=== PATIENT | male | born 1960 | race Caucasian/White ===

== ENCOUNTER 2016-10-03 10:01 | Observation (INO) | payer OTHER ==
--- NOTE | 2016-10-03 10:17 | CPEKG ---
Heart Rate: 67 RR Interval: 896 P-R Interval: 192 QRSD Interval: 112 QT Interval: 400 QTC Interval: 423 P Thorp: 58 QRS Thorp: -59 T Wave Thorp: 97 EKG Severity - ABNORMAL ECG - EKG Impression: SINUS RHYTHM EKG Impression: INCOMPLETE RBBB AND LAFB Electronically Signed By: Amalia Reyes 03-Oct-2016 15:22:39
[2016-10-03] MEDS ORDERED: ASPIRIN 81 MG CHEWABLE TAB PO ONE (10:35)
[2016-10-03] MEDS ORDERED: NS 500 ML IV ONE (10:35)
--- NOTE | 2016-10-03 10:35 | EDPHY ---
H & P Time Seen by Provider: 10/03/16 10:12 HPI/ROS: CHIEF COMPLAINT: Syncope HISTORY OF PRESENT ILLNESS: Patient is a 56-year-old male with a history of dilated left heart who presents emergency department after having syncopal episode. The patient was in the shower with his . He was having intercourse. He had not yet had orgasm. He felt lightheaded and dizzy. He leaned his head against the wall. He began to gag numerous times. He then sat down on the floor. His states he lost consciousness. She stated he laid on the shower floor for 2-3 minutes with his eyes rolled back up. He was not breathing. He then coughed and started to gag. His breathing return. He is slowly gained consciousness. The patient states he had mild chest tightness on the way to the emergency department but this is resolved. No leg pain or swelling. No need recent illness, fever or chills. Patient's states he slowly lowered himself to the ground. He fainted once he was lying on the ground. She states he did not sustain trauma. The patient has no complaints of pain or trauma. Patient's states that he has had 3 episodes of fainting since she has known him. They are all similar. He has had a significant workup by Dr. Robertson from Cardiology. He was told he had left ventricular hypertrophy. REVIEW OF SYSTEMS: My complete review of systems is negative except as mentioned in the HPI. Past Medical/Surgical History: Includes left ventricular hypertrophy Past surgical history: Noncontributory Social history: The patient is . He does not smoke. Smoking Status: Never smoked Physical Exam: Vitals noted GENERAL: Well-appearing, in no acute distress, alert. HEENT: Eyes normal to inspection, normal pharynx, no signs of dehydration. NECK: No thyromegaly, no lymphadenopathy, supple. RESPIRATORY: Clear to auscultation bilaterally, no rales, rhonchi or wheezing. CVS: Regular rate and rhythm, no rubs, murmurs, or gallops. ABDOMEN: Soft, nontender, nondistended, no organomegaly. BACK: Normal to inspection, no CVA tenderness. SKIN: Normal color, no rash, warm, dry. No pallor. EXTREMITIES: No pedal edema, no calf tenderness, no Homans sign or cords, no joint swelling. NEURO/PSYCH: Higher functions: Alert and Oriented x3. Normal speech and cognition. Normal mood and affect. Cranial nerves: Normal as tested. Cerebellar: Normal as tested. Good finger to nose, good [id number], normal gait. Peripheral exam: Normal motor exam. Normal sensation. Normal reflexes. Constitutional: Initial Vital Signs Temperature (C) 36.8 C 10/03/16 10:04 Heart Rate 68 10/03/16 10:04 Respiratory Rate 20 10/03/16 10:04 Blood Pressure 132/73 H 10/03/16 10:04 O2 Sat (%) 96 10/03/16 10:04 O2 Delivery Mode Room Air Allergies/Adverse Reactions: No Known Allergies Allergy (Unverified 10/03/16 10:03) Home Medications: Medication Instructions Recorded Ascorbic Acid [Vitamin C 500 mg 500 mg PO DAILY 10/03/16 (*)] Aspirin [Aspirin 81mg (*)] 81 mg PO DAILY 10/03/16 Cholecalciferol Vit D3 [Vitamin D3 2,000 units PO DAILY 10/03/16 2000 units tab (OTC)] Herbals/Supplements -Info Only 1 ea PO DAILY 10/03/16 Multivitamins [Multivitamin (*)] 1 each PO DAILY 10/03/16 Medical Decision Making - Diagnostics EKG Interpretation: Sinus rhythm. Normal axis. Normal intervals. The patient has flipped T-waves V3 through V6. I compared this with an old EKG that the patient's brought with her. This is similar. Imaging Results: Imaging Impressions Chest X-Ray 10/03/16 10:35 Impression: Normal. Chest x-ray is normal ED Course/Re-evaluation: In the emergency department I discussed possible etiologies with the patient. I answered all his questions. An IV was placed. Laboratory studies, EKG, echo and chest x-ray were ordered. Patient was given aspirin 324 mg orally. I rechecked the patient while here. He had no new complaints. Patient's laboratory studies were unremarkable. Troponin was negative. Echo: Please refer the dictated report by Dr. Powers. Patient has incidental finding of a density which will need close follow-up. I discussed case with Dr. Powers from Cardiology. He will consult on the patient. I discussed the case with the hospitalist service. Dr. Sommers will admit. I discussed the plan with the patient. I answered all his questions. On repeat check he was without complaint. He had no lightheadedness or dizziness. No chest pain. Prior to going to the floor the patient was doing well. No new complaints. Differential Diagnosis: My differential includes but is not limited to ACS, acute PR, dysrhythmia, vasovagal episode, CVA, dissection, aneurysm, electrolyte abnormality, sugar abnormality - Data Points Laboratory Results: Laboratory Results 10/03/16 10:18 10/03/16 10:18 10/03/16 10/03/16 10/03/16 10:18 10:18 10:18 WBC 6.89 10^3/uL 10^3/uL (3.80-9.50) RBC 4.99 10^6/uL 10^6/uL (4.40-6.38) Hgb 15.3 g/dL g/dL (13.7-17.5) Hct 45.7 % % (40.0-51.0) MCV 91.6 fL fL (81.5-99.8) MCH 30.7 pg pg (27.9-34.1) MCHC 33.5 g/dL g/dL (32.4-36.7) RDW 12.1 % % (11.5-15.2) Plt Count 225 10^3/uL 10^3/uL (150-400) MPV 9.2 fL fL (8.7-11.7) Neut % (Auto) 82.0 % H % (39.3-74.2) Lymph % (Auto) 11.9 % L % (15.0-45.0) Davidson % (Auto) 4.4 % L % (4.5-13.0) Eos % (Auto) 1.0 % % (0.6-7.6) Baso % (Auto) 0.3 % % (0.3-1.7) Nucleat RBC Rel Count 0.0 % % (0.0-0.2) Absolute Neuts (auto) 5.65 10^3/uL 10^3/uL (1.70-6.50) Absolute Lymphs (auto) 0.82 10^3/uL L 10^3/uL (1.00-3.00) Absolute Monos (auto) 0.30 10^3/uL 10^3/uL (0.30-0.80) Absolute Eos (auto) 0.07 10^3/uL 10^3/uL (0.03-0.40) Absolute Basos (auto) 0.02 10^3/uL 10^3/uL (0.02-0.10) Absolute Nucleated RBC 0.00 10^3/uL 10^3/uL (0-0.01) Immature Gran % 0.4 % % (0.0-1.1) Immature Gran # 0.03 10^3/uL 10^3/uL (0.00-0.10) PT 13.2 SEC SEC (12.0-15.0) INR 1.01 (0.83-1.16) APTT 23.8 SEC SEC (23.0-38.0) Sodium 141 mEq/L mEq/L (134-144) Potassium 4.6 mEq/L mEq/L (3.5-5.2) Chloride 104 mEq/L mEq/L (97-110) Carbon Dioxide 28 mEq/l mEq/l (22-31) Anion Gap 9 mEq/L mEq/L (8-16) BUN 15 mg/dL mg/dL (7-23) Creatinine 0.9 mg/dL mg/dL (0.7-1.3) Estimated GFR > 60 Glucose 151 mg/dL H mg/dL (70-100) Calcium 9.4 mg/dL mg/dL (8.5-10.4) Troponin I < 0.012 ng/mL ng/mL (0-0.034) NT-Pro-B Natriuret Pep 21 pg/mL pg/mL (0-125) Medications Given: Discontinued Medications Aspirin (Aspirin) 324 mg PO EDNOW ONE Stop: 10/03/16 10:36 Last Admin: 10/03/16 10:51 Dose: 324 mg Sodium Chloride (Ns) 500 mls @ 0 mls/hr IV ONCE ONE PRN Reason: As Directed Stop: 10/03/16 10:36 Last Admin: 10/03/16 10:42 Dose: 500 mls Departure - Departure Disposition: [facility] Clinical Impression: Syncope and collapse Condition: Good
[2016-10-03 10:41] LABS: % IMMATURE GRANULYOCYTES 0.4 % (0.0-1.1); ABSOLUTE IMMATURE GRANULOCYTES 0.03 10^3/uL (0.00-0.10); ADD DIFF? NO; ADD MORPH? NO; ADD SCAN? NO; ATYPICAL LYMPHOCYTE FLAG 0 (0-99); FRAGMENT RBC FLAG 0 (0-99); HEMATOCRIT 45.7 % (40.0-51.0); HEMOGLOBIN 15.3 g/dL (13.7-17.5); LEFT SHIFT FLG 0 (0-99); LIPEMIA HEMOLYSIS FLAG 80 (0-99); MEAN CELL HEMOGLOBIN 30.7 pg (27.9-34.1); MEAN CELL HEMOGLOBIN CONCENTR. 33.5 g/dL (32.4-36.7); MEAN CELL VOLUME 91.6 fL (81.5-99.8); MEAN PLATELET VOLUME 9.2 fL (8.7-11.7); PLATELET CLUMPS FLAG 10 (0-99); PLATELET COUNT 225 10^3/uL (150-400); RED BLOOD CELL COUNT 4.99 10^6/uL (4.40-6.38); RED CELL DISTRIBUTION WIDTH 12.1 % (11.5-15.2)
[2016-10-03 10:54] LABS: INR 1.01 (0.83-1.16); PROTIME(PATIENT) 13.2 SEC (12.0-15.0)
[2016-10-03 10:55] LABS: APTT 23.8 SEC (23.0-38.0)
[2016-10-03 10:59] LABS: ANION GAP 9 mEq/L (8-16); CALCIUM 9.4 mg/dL (8.5-10.4); CARBON DIOXIDE 28 mEq/l (22-31); CHLORIDE 104 mEq/L (97-110); CREATININE 0.9 mg/dL (0.7-1.3); GLOMERULAR FILTRATION RATE > 60; GLUCOSE 151 mg/dL (70-100); POTASSIUM 4.6 mEq/L (3.5-5.2); SODIUM 141 mEq/L (134-144)
[2016-10-03 11:11] LABS: TROPONIN I < 0.012 ng/mL (0-0.034)
--- NOTE | 2016-10-03 11:50 | ECHO ---
[id number] + + [address] : : [place] [address] : : [phone] + + Adult Echocardiographic Report + ----+ :Name: Lyn SCHRADERsinceremegan Date: 10/03/2016 11:03 AM : : Hospital Admission Number: [id number] Location : ER: :: 1960 Gender: Male Height: 76 in : :Age: 56 yrs Race: WH Weight: 22 lb : :Reason For Study: Chest pain : : BSA: 0.87 meters 2 : + ----+ MMode/2D Measurements \T\ Calculations IVSd: 1.4 cm LVIDd: 5.2 cm FS: 47.2 % Ao root diam: LVPWd: 1.2 cm LVIDs: 2.8 cm EDV(Teich): 4.0 cm 130.1 ml LA dimension: ESV(Teich): 3.9 cm 28.3 ml EF(Teich): 78.3 % LVLd ap4: 8.4 cm SV(MOD-sp4): EDV(MOD-sp4): 70.0 ml 92.0 ml LVLs ap4: 7.2 cm ESV(MOD-sp4): 22.0 ml EF(MOD-sp4): 76.1 % Normal Measurement Values: + + :LVIDd (3.5-5.7cm) IVSd (0.6-1.1cm) LVPWd (0.6-1.1cm) Aortic Root (2.0-3.7cm)Left Atrium (1.5-4.0cm): :LV Vol(d) (76-115ml) LV Vol(s) (29-48ml) Ejec Fraction (50-65%)PV Daniel (0.6- 1.2m/s) TV Daniel (0.4-1.0m/s) : :MV E Daniel (0.8-1.0m/s)MV A Daniel (0.3-1.0m/s)LVOT Daniel (0.7-1.2m/s) Asc Ao Daniel ( 0.9-1.8m/s) : + + Doppler Measurements \T\ Calculations MV E max daniel: 85.4 cm/sec Ao V2 max: 161.0 cm/sec MV A max daniel: 85.9 cm/sec Ao max P.4 mmHg MV E/A: 0.99 Ao mean P.0 mmHg Ao V2 mean: 113.0 cm/sec Ao V2 VTI: 34.0 cm Left Ventricle The left ventricle is normal in size. There is mild concentric left ventricular hypertrophy. Left ventricular systolic function is normal. Ejection Fraction = 70-75%. No regional wall motion abnormalities noted. Right Ventricle The right ventricle is normal in size and function. Atria The left atrial size is normal. Right atrial size is normal. Mitral Valve The mitral valve is normal in structure and function. There is no mitral regurgitation noted. Tricuspid Valve Normal tricuspid valve. No tricuspid regurgitation. Aortic Valve The aortic valve is trileaflet. The aortic valve opens well. There is no aortic stenosis. There is no aortic insufficiency. Pulmonic Valve The pulmonic valve is not well visualized. Great Vessels The aortic root is normal size. Pericardium/Pleural Question fat pad vs. trace anterior pericardial effusion. Conclusion A complete two-dimensional transthoracic echocardiogram was performed (2D, M-mode, Doppler and color flow Doppler). (1) Left ventricular systolic ejection fraction was normal (70%) - normal wall motion (2) There was mild concentric left ventricular hypertrophy noted (3) No diastolic dysfunction (4) Normal right ventricular size and function (5) Normal atrial dimensions - there was an echodensity to the superior aspect of the right atrium. Uncertain what this might represent, but would consider BRIANNA to better visualize this density (6) Grossly normal mitral valve (7) Trileaflet aortic valve without sclerosis or insufficiency noted (7) Grossly normal tricuspid valve (8) Poor visualization of the pulmonic valve (9) No comparison echocardiograms Final Reading Physician: Remedios Tidwell signed on 10/03/2016 11:49 AM Ordering Physician: ANG ENAMORADO Performed By: Zuly Avila, SHYANNECS
[2016-10-03] MEDS ORDERED: ACETAMINOPHEN 325 MG TAB PO PRN (13:10)
[2016-10-03] MEDS ORDERED: TEMAZEPAM 15 MG CAP PO PRN (13:10)
[2016-10-03] MEDS ORDERED: ONDANSETRON DISINTEGRATING 4 MG TAB PO PRN (13:10)
[2016-10-03] MEDS ORDERED: oxyCODONE IR 5 MG TAB PO PRN (13:10)
[2016-10-03] MEDS ORDERED: ONDANSETRON 4 MG/2 ML VIAL IVP PRN (13:10)
--- NOTE | 2016-10-03 16:01 | GHP ---
[f rep st] HISTORY AND PHYSICAL DATE OF ADMISSION: 10/02/2016 PRIMARY CARE PHYSICIAN: Sulaiman Coleman MD PRIMARY STOPPER MAKER: Dr. Calude Robertson. CHIEF COMPLAINT: Syncope. HPI: The patient is a 56-year-old male with past medical history significant for LVH seen on previous MRI and cardiac BRIANNA and dyslipidemia, who is being admitted after a syncopal episode. This occurred while he was having intercourse in the shower with his . He noted antecedent lightheadedness and dizziness. He was able to steady himself against the wall. He started to have gagging with this. He lowered himself to the floor and then was noted to have a loss of consciousness. He got out of the shower and then was able to crawl back into bed, after which the symptoms resolved. He denies any antecedent palpitations, chest pains, dyspnea. He reports previous syncopal episode 18 years ago in the setting of a flu. He had gotten up and was vomiting and proceeded to pass out and hit his head. He was taken to an emergency department and was diagnosed with the flu at that time. Overall, he reports that he is in good health. He exercises regularly by hiking. He is able to hike up [place]. He reports he does note some dyspnea when he will try to jog. REVIEW OF SYSTEMS: As per HPI. A complete 10-point review of systems was obtained and is negative except for what is dictated. 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 There was also mild lipomatous hypertrophy of his interatrial septum. SOCIAL HISTORY: Patient is . His is . He is a never smoker and he reports 1 beer per week. PAST SURGICAL HISTORY: None. MEDICATIONS: Have been reconciled and are listed as vitamin C, multivitamin, vitamin D3 and aspirin. ALLERGIES: No known drug allergies. FAMILY HISTORY: Patient's parents are alive. PHYSICAL EXAMINATION: VITAL SIGNS: BP of 132/84, heart rate 62, respirations 17, O2 saturation 93% on room air, temp of 97.9 degrees Fahrenheit. GENERAL: He is a very pleasant man in no apparent distress. EYES: PERRL, without scleral icterus. HEART: Regular rate and rhythm; with no rubs, gallops, or murmurs auscultated. LUNGS: Clear. ABDOMEN: Soft with normoactive bowel sounds. : No Redman present. SKIN: Warm and dry. PSYCH: Normal mood and affect for given situation. NEURO: No focal deficits detected. DIAGNOSTIC DATA: A 12-lead ECG personally interpreted demonstrates sinus rhythm with a left atrial abnormality, borderline 1st-degree AV block, incomplete right bundle branch block, LAFB. Cardiac calcium score was elevated in 2015 to 2.58 with calcification located in his RCA. CBC with WBC 6.9, hemoglobin 15.3, hematocrit 45.7, platelet count 225. BMP with sodium 141, potassium 4.6, chloride 104, CO2 28, BUN 15, creatinine 0.9, glucose 151. Troponin less than 0.012. Chest x-ray reviewed, shows normal exam. Echo from this admission shows mild concentric LVH and an echo density in the superior aspect of his right atrium. IMPRESSION AND PLAN: The patient is a 56-year-old male admitted with syncope. 1. Syncope, possibly vasovagal. We will plan to obtain orthostatics. He is encouraged on hydration. We will also obtain carotid Dopplers to rule out severe carotid disease. 2. Abnormal electrocardiogram with incomplete right bundle branch block, left anterior fascicular block, and borderline 1st-degree atrioventricular block. This certainly warrants outpatient monitoring given the concern that he may have had transient heart block. This will be reviewed with his primary cardiology group. 3. Positive coronary artery atherosclerosis by coronary artery calcium score. Given his episode of syncope, we will obtain a nuclear treadmill stress test for further evaluation. 4. Gagging. He is advised to follow up with outpatient education analyst for this. 5. Abnormal echocardiogram. This has been worked up in the past. He may continue outpatient workup for this. 6. Cardiac risk factor stratification. We will obtain serial enzymes. We will also obtain fasting lipids in the morning. 7. Diet. He may be on a regular diet. 8. Disposition. The patient will be admitted to observation status. Should any of his testing come back abnormal or if he has further episodes, this may warrant inpatient admission. 9. Deep venous thrombosis prophylaxis. He is low risk. We will plan for early ambulation. /[id number]/MODL MTDD
[2016-10-03] MEDS ORDERED: IBUPROFEN 600 MG TAB PO PRN (19:31)
[2016-10-04 01:35] LABS: HEMOGLOBIN A1C 5.8 % (4.0-6.0)
[2016-10-04 04:23] LABS: ALANINE AMINOTRANSFERASE 35 IU/L (21-72); ALBUMIN 3.7 g/dL (3.5-5.0); ALKALINE PHOSPHATASE 74 IU/L (38-126); ANION GAP 8 mEq/L (8-16); ASPARTATE AMINOTRANSFERASE 23 IU/L (17-59); BILIRUBIN,TOTAL 0.7 mg/dL (0.1-1.4); BILIRUBIN-CONJUGATED 0.3 mg/dL (0.0-0.5); BILIRUBIN-UNCONJUGATED 0.4 mg/dL (0.0-1.1); CALCIUM 8.8 mg/dL (8.5-10.4); CARBON DIOXIDE 25 mEq/l (22-31); CHLORIDE 108 mEq/L (97-110); CHOLESTEROL 207 mg/dL (140-220); CHOLESTEROL/HDL RATIO 4.93 RATIO (1.00-4.97); CREATININE 0.8 mg/dL (0.7-1.3); GLOMERULAR FILTRATION RATE > 60; GLUCOSE 92 mg/dL (70-100); HIGH DENSITY LIPOPROTEIN 42 mg/dL (40-65); LDL/HDL RATIO 3.26 RATIO (1.00-3.64); LOW DENSITY LIPOPROTEIN 137 mg/dL (80-100); NON-HIGH DENSITY LIPOPROTEIN 165 mg/dL (90-129); POTASSIUM 4.4 mEq/L (3.5-5.2); SODIUM 141 mEq/L (134-144); TOTAL PROTEIN 6.4 g/dL (6.3-8.2); TRIGLYCERIDE 142 mg/dL (40-150); VERY LOW DENSITY LIPOPROTEINS 28 mg/dL (8-25)
[2016-10-04 04:28] LABS: TROPONIN I < 0.012 ng/mL (0-0.034)
[2016-10-04] MEDS ORDERED: MULTIVITAMINS 1 EACH TAB PO SCH (09:00)
[2016-10-04] MEDS ORDERED: ASPIRIN 81 MG CHEWABLE TAB PO SCH (09:00)
--- NOTE | 2016-10-04 11:29 | CPR ---
[f rep st] NONINVASIVE CARDIAC PROCEDURE REPORT PROCEDURE: Exercise treadmill stress testing. INDICATION FOR PROCEDURE: Syncopal event, abnormal electrocardiogram. DESCRIPTION OF PROCEDURE: After obtaining informed consent, patient was placed on electrocardiogram . Initial EKG shows sinus rhythm, RSR prime noted in V1 and V2, questioning incomplete right bundle branch block, leftward axis, poor R-wave progression in anterior leads, inverted T-waves in I and a VL. Patient denies any chest pain, shortness of breath, or symptoms suggesting of ischemia. Initia l blood pressure of 136/78, saturation 96% on room air. STRESS: Following standard Scott protocol, patient was placed on exercise treadmill with following findings: 1. Patient exercised for 1 minute obtaining a heart rate of 161 beats per minute, which is 98% of M PHR. 2. 10.9 METS. 3. Patient had no symptoms of chest pain or symptoms suggesting ischemia. 4. It was noted patient had [address] depression in inferior lateral leads at peak exer cise. 5. No arrhythmias noted. 6. BP variations: Rest 136/78, peak 192/74. 7. SpO2 greater than 90%. 8. Procedure was stopped due to maximum effort. 9. Zaman score of +5, placing patient at low cardiovascular risk for 1 year. Patient recovered for 5 minutes with no symptoms, again, no arrhythmias. EKG returned back to [facility]. Patient remained asymptomatic of any symptoms suggesting of ischemia. Final blood pressure wa s 154/72, heart rate 96, saturation 94% ;. Patient was taken down to Nuclear Medicine for post stres s MPI imaging. IMPRESSION: 56-year-old male admitted for syncopal event with abnormal electrocardiogram, denies an y chest pressure or pain, reported history of initial EKG showing T-wave inversion in I and aVL with poor R-wave progression in anterior leads. The patient exercised to a level equivocal for ischemia , but Zaman treadmill score of 5 placing him at low cardiovascular risk. Potentially due to his rest ing EKG, at make him at a higher risk for having a false-positive exercise treadmill testing. Patie nt reporting having a stress test done at [facility] done last year, was found to be abnorma l, and had to have MPI imaging done which reporting was normal last year too. Would wait for MPI im aging for further evaluation of ischemia. Results of testing went over with Dr. Powers. /[id number]/MODL
[2016-10-04 11:53] VITALS: BP 123/74; PULSE 72; RESP 18; TEMP 98.1; O2SAT 93
--- NOTE | 2016-10-05 06:46 | GDS ---
[f rep st] DISCHARGE SUMMARY DISCHARGE DIAGNOSES: 1. Syncope, most likely vasovagal in etiology. 2. Incomplete right bundle branch block and left anterior fascicular block. 3. Coronary artery disease by coronary artery calcium score. HOSPITAL COURSE AND STAY BY PROBLEM: Syncope: The patient was placed in observation on telemetry w here he had no noted arrhythmias or recurrent episodes. Carotid Doppler was done on 10/03/2016 whic h was negative for flow-limiting carotid artery stenosis. There was an incidental finding of promin ent bilateral lymph nodes that should be followed up in 6 months. Myocardial perfusion scan was don e with nuclear imaging and revealed ejection fraction of 72% with no focal wall motion abnormalities or evidence for ischemia or infarction. On the day of discharge, the patient states he feels well and is agreeable to discharge to follow up with his primary care provider. PHYSICAL EXAM: VITAL SIGNS: On day of discharge blood pressure 123/74, pulse 72, respiratory rate 18, O2 saturation 93% on room air. Temperature afebrile. GENERAL: No acute distress. HEART: S1 and S2. LUNGS: Clear. ABDOMEN: Soft. NEUROLOGIC: No focal deficits. PERTINENT LABORATORY AND RADIOLOGY STUDIES: Echocardiogram done 10/03/2016, refer to report. Carot id Doppler study done 10/03/2016, refer to report. Myocardial perfusion scan on 10/04/2016, refer t o report. DISCHARGE MEDICATIONS: Please refer to discharge medication reconciliation in [facility] for full det ails. DISCHARGE INSTRUCTIONS: The patient will be discharged from the hospital where he should follow up with his primary care provider. Given his symptoms it sounds like the most likely explanation for h is syncopal episode was vasovagal in etiology. He should have repeat imaging of his cervical lymph nodes as recommended by his primary care provider. /[id number]/MODL
== END 2016-10-04 14:50 | disposition home or self-care (01) ==
LOC: F2W 13:18
PROVIDERS: ADMIT Internal Medicine; ATTEND Internal Medicine
DX: R55 Syncope and collapse (principal); I45.19 Other right bundle-branch block; I25.10 Atherosclerotic heart disease of native coronary artery without angina pectoris; I44.4 Left anterior fascicular block; I44.0 Atrioventricular block, first degree
CPT/HCPCS: 71020; 78452; 93005; 93017; 93306; 93880; A9500; G0378

== ENCOUNTER → 2017-04-22 | Day surgery (SDC) | payer OTHER ==
--- NOTE | 2017-04-26 19:25 | GOP ---
[f rep st] OPERATIVE REPORT DATE OF OPERATION: 04/22/2017 SURGEON: Shay Jain MD PREOPERATIVE DIAGNOSIS: Elevated PSA. POSTOPERATIVE DIAGNOSIS: Elevated PSA. PROCEDURE PERFORMED: Transrectal ultrasound-guided prostate biopsies. FINDINGS: INDICATIONS: Patient is a 56-year-old gentleman with a history of elevated PSAs, most recently 8.92 ng/mL. Options were discussed and he elected to come and undergo prostate biopsies. DESCRIPTION OF PROCEDURE: With the patient in the left lateral decubitus position, the transrectal u ltrasound probe was placed into the bladder. Images were obtained for measurement. 10 mL of 1% lido asya was used to infiltrate the periprosthetic tissue. A total of 12 biopsies were obtained with 2 from the right and left base, right and left mid prostate, and right and left apex. These specimens were submitted in formalin. The ultrasound probe was removed. The patient tolerated the procedure w lata. /[id number]/MODL
== END | disposition home or self-care (01) ==
LOC: BMCIMAGING 07:26
PROVIDERS: ATTEND Urology
PROC: 0VB07ZX Excision of Prostate, Via Natural or Artificial Opening, Diagnostic (ICD-10-PCS; principal; 2017-04-22)
DX: R97.20 Elevated prostate specific antigen [PSA] (principal)

== ENCOUNTER → 2018-09-27 | Outpatient (CLI) | payer OTHER | LOC: BMCIMAGING 07:30 | PROVIDERS: ATTEND Orthopaedic Surgery Hand Surgery | DX: S49.91XA Unspecified injury of right shoulder and upper arm, initial encounter (principal); M19.111 Post-traumatic osteoarthritis, right shoulder; Y93.9 Activity, unspecified ==